=== PATIENT | female | born 1980 | race American Indian/Alaskan Native ===

== ENCOUNTER 2019-07-05 18:34 | Emergency (ER) | payer OTHER ==
--- NOTE | 2019-07-05 19:33 | Event Note ---
ED Screening Note Date of service: 07/05/19 Time: 19:28 ED Screening Note: This is a 38 y.o. F. that presents to the ER with hematochezia x 1 days and left flank. PMH HTN, HLD, and hemorrhoids Reports left flank pain for 1 week. She went to urgent care last Sunday and prescribed ibuprofen for muscle spasm. States no improvement of flank pain. Denies fever, urinary frequency, urgency, dysuria, or vaginal discharge. LMP 06/20/2019 This initial assessment/diagnostic orders/clinical plan/treatment(s) is/are subject to change based on patients health status, clinical progression and re- assessment by fellow clinical providers in the ED. Further treatment and workup at subsequent clinical providers discretion. Patient/guardian urged not to elope from the ED as their condition may be serious if not clinically assessed and managed. Initial orders include: Labs and CT of abdomen and pelvis
[2019-07-05 19:35] VITALS: BP 150/93
[2019-07-05 20:18] LABS: Basophils % (Auto) 0.3 % (0.0-1.8); Eosinophils # (Auto) 0.1 K/mm3 (0.0-0.4); Hematocrit 36.8 % (30.3-42.9); Hemoglobin 12.4 gm/dl (10.1-14.3); Lymphocytes # (Auto) 2.5 K/mm3 (1.2-5.4); Lymphocytes % (Auto) 19.2 % (13.4-35.0); Mean Corpuscular HGB Conc 34 % (30-34); Mean Corpuscular Volume 74 fl (79-97); Monocytes # (Auto) 0.6 K/mm3 (0.0-0.8); Monocytes % (Auto) 4.2 % (0.0-7.3); Platelet Count 353 K/mm3 (140-440); Red Blood Count 4.97 M/mm3 (3.65-5.03)
[2019-07-05 20:43] LABS: Alanine Aminotransferase 17 units/L (7-56); Albumin 4.5 g/dL (3.9-5); BUN/Creatinine Ratio 18; Blood Urea Nitrogen 11 mg/dL (7-17); Calcium 8.8 mg/dL (8.4-10.2); Hemolysis Index 2
--- NOTE | 2019-07-05 20:52 | Emergency Department Report ---
ED Female HPI - General Chief complaint: Abdominal Pain Stated complaint: BLOOD IN STOOL/LT SIDE PAIN Time Seen by Provider: 07/05/19 19:27 Source: patient Mode of arrival: Ambulatory Limitations: No Limitations - History of Present Illness Initial comments: This is a 38 y.o. F. that presents to the ER with hematochezia x 1 days and left flank. PMH HTN, HLD, and hemorrhoids Reports left flank pain for 1 week. She went to urgent care last Sunday and prescribed ibuprofen for muscle spasm. States no improvement of flank pain. Denies fever, urinary frequency, urgency, dysuria, or vaginal discharge. LMP 06/20/2019 - Related Data Allergies Allergy/AdvReac Type Severity Reaction Status Date / Time No Known Allergies Allergy Unverified 07/05/19 19:35 ED Review of Systems ROS: Stated complaint: BLOOD IN STOOL/LT SIDE PAIN Other details as noted in HPI ED Past Medical Hx - Past Medical History Previous Medical History?: Yes Hx Hypertension: Yes Additional medical history: High Cholesterol, Hemorroids, - Surgical History Past Surgical History?: Yes Hx Cholecystectomy: Yes Additional Surgical History: Tubal Ligation, C-sections X 3 - Social History Smoking Status: Never Smoker Substance Use Type: None ED Physical Exam - General Limitations: No Limitations ED Course Vital Signs 07/05/19 19:28 Temperature 98.6 F Pulse Rate 80 Respiratory 18 Rate Blood Pressure 150/93 O2 Sat by Pulse 100 Oximetry ED Medical Decision Making - Lab Data Result diagrams: 07/05/19 19:55 07/05/19 19:55 - Radiology Data Radiology results: report reviewed Patient: STEVEN HAMM MR#: [id number] 7 : 1980 Acct:[id number] Age/Sex: 38 / F ADM Date: 07/05/19 Loc: ED Attending Dr: Ordering Physician: GUERITA FELDMAN Date of Service: 07/05/19 Procedure(s): CT abdomen pelvis w con Accession Number(s): [id number] cc: GUERITA FELDMAN CT ABDOMEN AND PELVIS WITH CONTRAST INDICATION: Left upper artery pain with diarrhea. COMPARISON: No relevant prior imaging study available. TECHNIQUE: Axial, coronal and sagittal CT imaging of the abdomen and pelvis was performed after injection of 100 mL Omnipaque [address] scans at this location are performed using CT dose reduction for ALARA by means of automated exposure control. FINDINGS: LOWER CHEST: No significant abnormality. LIVER: Bilobar are hepatic hemangiomas measure up to 1.3 cm. No additional significant abnormality. BILIARY: Prior cholecystectomy. No significant abnormality. PANCREAS: No significant abnormality. SPLEEN: No significant abnormality. ADRENALS: No significant abnormality. KIDNEYS AND URETERS: Multiple left renal parapelvic cysts are noted without an additional significant abnormality. GI TRACT: No significant abnormality of the stomach, small bowel or colon. Unremarkable appendix. There is rectus diastasis with a small umbilical hernia containing fat. PERITONEUM: No free fluid. No free air. No fluid collection. LYMPH NODES: No significant adenopathy. VASCULATURE: No significant abnormality. URINARY BLADDER: No significant abnormality. REPRODUCTIVE ORGANS: A hyperdense mass is seen along the uterine body measuring 4.6 x 4.0 cm on image 124 of series 2 and likely represents a fibroid. No additional significant abnormality. ADDITIONAL FINDINGS: None. SKELETAL SYSTEM: No significant abnormality. IMPRESSION: 1. No acute abnormality of the abdomen or pelvis. 2. Additional findings as above. Signer Name: Pavan Linda MD Signed: 07/05/2019 10:05 PM Workstation Name: [id number] Transcribed By: [place] Dictated By: Pavan Linda MD Electronically Authenticated By: Pavan Linda MD Signed Date/Time: 07/05/192204 DD/ 00 TD/TT: Critical care attestation.: If time is entered above; I have spent that time in minutes in the direct care of this critically ill patient, excluding procedure time. ED Disposition Clinical Impression: Left upper quadrant pain, Microhematuria Uterine fibroid Qualifiers: Uterine leiomyoma location: unspecified location Qualified Code(s): D25.9 - Leiomyoma of uterus, unspecified Disposition: DC-01 TO HOME OR SELFCARE Is pt being admited?: No Does the pt Need Aspirin: No Condition: Stable Instructions: Abdominal Pain (ED), Uterine Fibroids (ED), Acute Hematuria (ED) Additional Instructions: CAT scan shows no acute abnormalities but does show a small fibroid uterus. Your urine shows small amount of blood which is considered microhematuria. I am referring him to a urologist as well as a [facility] specialist. I'm also referrig you to [facility] for concerns of blood in stool. Your lab work is stable does not show any acute blood loss. Referrals: [facility] [Provider Group] - 3-5 Days LISANDRO DUQUE MD [Staff Physician] - 3-5 Days [facility] [Provider Group] - 3-5 Days Forms: Work/School Release Form(ED)
[2019-07-05 20:56] LABS: Bilirubin,Urine SM (Negative); Blood,Urine MOD (Negative); Color,Urine Yellow (Yellow); Mucus,Urine 2+ /HPF; Protein,Urine <15 mg/dL mg/dL (Negative); Urobilinogen,Urine < 2.0 mg/dL (<2.0)
[2019-07-05 21:26] LABS: Bacteria,Urine 1+ /HPF (Negative)
[2019-07-05 21:35] LABS: Ictotest,Urine Negative (Negative)
--- NOTE | 2019-07-05 22:10 | Cat Scan Report ---
CT ABDOMEN AND PELVIS WITH CONTRAST INDICATION: Left upper artery pain with diarrhea. COMPARISON: No relevant prior imaging study available. TECHNIQUE: Axial, coronal and sagittal CT imaging of the abdomen and pelvis was performed after inje ction of 100 mL Omnipaque [address] scans at this location are performed using CT dose re duction for ALARA by means of automated exposure control. FINDINGS: LOWER CHEST: No significant abnormality. LIVER: Bilobar are hepatic hemangiomas measure up to 1.3 cm. No additional significant abnormality. BILIARY: Prior cholecystectomy. No significant abnormality. PANCREAS: No significant abnormality. SPLEEN: No significant abnormality. ADRENALS: No significant abnormality. KIDNEYS AND URETERS: Multiple left renal parapelvic cysts are noted without an additional significant abnormality. GI TRACT: No significant abnormality of the stomach, small bowel or colon. Unremarkable appendix. Th ere is rectus diastasis with a small umbilical hernia containing fat. PERITONEUM: No free fluid. No free air. No fluid collection. LYMPH NODES: No significant adenopathy. VASCULATURE: No significant abnormality. URINARY BLADDER: No significant abnormality. REPRODUCTIVE ORGANS: A hyperdense mass is seen along the uterine body measuring 4.6 x 4.0 cm on image 124 of series 2 and likely represents a fibroid. No additional significant abnormality. ADDITIONAL FINDINGS: None. SKELETAL SYSTEM: No significant abnormality. IMPRESSION: 1. No acute abnormality of the abdomen or pelvis. 2. Additional findings as above. Signer Name: Pavan Linda MD Signed: 07/05/2019 10:05 PM Workstation Name: [id number]
== END 2019-07-05 23:45 | disposition home or self-care (01) ==
LOC: ED 18:34
DX: D25.9 Leiomyoma of uterus, unspecified (principal); I10 Essential (primary) hypertension; E78.00 Pure hypercholesterolemia, unspecified; Z90.49 Acquired absence of other specified parts of digestive tract; Z98.51 Tubal ligation status
CPT/HCPCS: 36415; 74177; 80053; 81001; 83690; 84703; 85025; 93005; 93010; 99284; Q9967

== ENCOUNTER 2019-07-09 10:47 | Day surgery (SDC) | payer OTHER ==
[~2019-07-09 10:47] MED LIST: SODIUM CHLORIDE 0.9% 1000 ML 1,000 ML IV SCH
--- NOTE | 2019-07-09 11:47 | Anesthesia Day of Surgery ---
Anesthesia Day of Surgery - Day of Surgery Patient Examined: Yes Patient H&P Reviewed: Yes Patient is NPO: Yes Beta Blockers: Yes
--- NOTE | 2019-07-09 11:47 | Anesthesia Consultation ---
Anesthesia Consult and Med Hx Date of service: 07/09/19 - Airway Anesthetic Teeth Evaluation: Good ROM Head & Neck: Adequate Mental/Hyoid Distance: Adequate Mallampati Class: Class II Intubation Access Assessment: Probably Good - Pulmonary Exam CTA: Yes - Cardiac Exam Cardiac Exam: RRR - Pre-Operative Health Status ASA Pre-Surgery Classification: ASA2 Proposed Anesthetic Plan: MAC - Cardiovascular System Hx Hypertension: Yes - Gastrointestinal Hx Gastroesophageal Reflux Disease: Yes - Endocrine Hx Liver Disease: Yes (Hyperlipidemia)
[2019-07-09] MEDS ORDERED: MIDAZOLAM 2 MG/2 ML INJ ONE (11:50)
[2019-07-09] MEDS ORDERED: PROPOFOL 200 MG/20 ML VIAL IV ONE (11:50)
--- NOTE | 2019-07-09 12:08 | Procedure Note ---
Date of procedure: 07/09/19 Pre-op diagnosis: Atypical Chest Pain Post-op diagnosis: other (R/O Eosinophilc Esophagitis/Gastritis/R/O Celiac Disease) Procedure: EGD with Biopsy Anesthesia: MAC Surgeon: ALISON JAMISON Estimated blood loss: minimal Pathology: list Specimen disposition: to lab Condition: stable Disposition: same day (Treat with PPI and Baclofen. Avoid aspirin and NSAID for 4 days; otherwise resume home medication and follow up in 1 to 2 weeks ([phone]).)
[2019-07-09 12:44] VITALS: BP 130/85
--- NOTE | 2019-07-09 14:30 | Operative Report ---
PROCEDURE: EGD with biopsy. INDICATIONS: This is a 38-year-old female who has been having some atypical chest pain as well as associated epigastric pain that appears to be worsened with food. EGD was done to make sure there was not any significant upper GI pathology. DESCRIPTION OF PROCEDURE: Procedure was done after getting informed consent with MAC anesthesia. An instrument was passed through the hypopharynx into the esophagus, which showed some mild distal erosive esophagitis. Biopsy was done from the mid esophagus to rule out for possible eosinophilic esophagitis. The stomach showed gastritis. Biopsy was done from the gastric antrum, gastric body and angular incisura to rule out for H. pylori and atrophic gastritis. There was minimal bleeding associated with the biopsy. The pylorus was patent. The duodenum in the first and second portion appeared normal. Because of her age, biopsy was also done from the second part to rule out for possible associated celiac disease. There was no peptic ulcer disease noted. No complications associated with the procedure and only minimal bleeding associated with the biopsy. ASSESSMENT: Atypical chest pain, rule out eosinophilic esophagitis, dyspepsia, gastritis, rule out celiac disease. PLAN: To treat the patient with PPI, have the patient avoid aspirin and aspirin-related products for the next few days. Follow up in the office in 1-2 weeks' time. The procedure was done in the GI lab with assistance of the GI lab team, which included the GI lab nurse including Natalia smith and with assistance of Anesthesia. JOB# [id number] LATRICE/JORY
--- NOTE | 2019-07-09 15:49 | Post Anesthesia Evaluation ---
- Post Anesthesia Evaluation Patient Participated: Yes Airway Patent: Yes Stable Respiratory Function: Yes Nausea/Vomiting: No Temp > 96.8F: Yes Pain Manageable: Yes Adequeate Hydration: Yes Anesthesia Complications: No Block Receding Appropriately: Not Applicable Patient on Ventilator: No
== END 2019-07-09 10:48 | disposition home or self-care (01) ==
LOC: GIO 10:47
DX: R10.13 Epigastric pain (principal); K27.9 Peptic ulcer, site unspecified, unspecified as acute or chronic, without hemorrhage or perforation; K31.89 Other diseases of stomach and duodenum; B96.81 Helicobacter pylori [H. pylori] as the cause of diseases classified elsewhere; R07.9 Chest pain, unspecified; I10 Essential (primary) hypertension; K21.9 Gastro-esophageal reflux disease without esophagitis; E78.00 Pure hypercholesterolemia, unspecified; Z79.82 Long term (current) use of aspirin; Z79.899 Other long term (current) drug therapy; Z90.49 Acquired absence of other specified parts of digestive tract; Z98.890 Other specified postprocedural states
CPT/HCPCS: 43239; 81025; 88305; 88342; J2250; J2704; J7030

== ENCOUNTER 2019-09-11 07:23 | Day surgery (SDC) | payer OTHER ==
[2019-09-11] MEDS ORDERED: SODIUM CHLORIDE 0.9% 1000 ML 1,000 ML IV SCH (08:15)
--- NOTE | 2019-09-11 08:38 | Anesthesia Day of Surgery ---
Anesthesia Day of Surgery - Day of Surgery Patient Examined: Yes Patient H&P Reviewed: Yes Patient is NPO: Yes
--- NOTE | 2019-09-11 08:38 | Anesthesia Consultation ---
Anesthesia Consult and Med Hx Date of service: 09/11/19 - Airway Anesthetic Teeth Evaluation: Good, Caps ROM Head & Neck: Adequate Mental/Hyoid Distance: Adequate Mallampati Class: Class II Intubation Access Assessment: Probably Good - Pulmonary Exam CTA: Yes - Cardiac Exam Cardiac Exam: RRR - Pre-Operative Health Status ASA Pre-Surgery Classification: ASA2 Proposed Anesthetic Plan: MAC - Cardiovascular System Hx Hypertension: Yes (no longer taking meds ) - Gastrointestinal Hx Gastroesophageal Reflux Disease: Yes - Endocrine Hx Liver Disease: Yes (Hyperlipidemia) - Hematic Hx Sickle Cell Disease: (SICKLE CELL TRAIT) - Additional Comments Anesthesia Medical History Comments: abdominal pain. kidney cyst, benign lung tumor. Denies any resp.symptoms
[2019-09-11] MEDS ORDERED: PROPOFOL 200 MG/20 ML VIAL IV ONE ×3 (09:17→09:32)
[2019-09-11] MEDS ORDERED: LIDOCAINE 2% UROJECT 10 ML JELLY ONE (09:23)
[2019-09-11] MEDS ORDERED: LIDOCAINE (2%) 20 MG/1 ML VIAL 20 ML MDV INFILTRATI ONE (09:41)
[2019-09-11] MEDS ORDERED: LIDOCAINE 2% UROJECT 10 ML JELLY MM ONE (09:45)
[2019-09-11] MEDS ORDERED: LIDOCAINE JELLY (2%) 5 ML TOPICAL ONE (09:45)
--- NOTE | 2019-09-11 10:06 | Procedure Note ---
Date of procedure: 09/11/19 Pre-op diagnosis: Abdominal Pain and Hematochezia Post-op diagnosis: other (Abdominal Pain (R/O Microscopic Colitis and R/O Ileitis)/Hematochezia secondary to Moderate Internal Hemorrhoids (S/P Banding x 4 Internal Hemorrhoids)/Minor,External Hemorrhoids) Procedure: Colonoscopy with Biopsy and Flexible sigmopidoscopy with Banding x 5 ((4 Hemorrhoids Banded; jas hemorrhoid was banded with 2 Bands). Anesthesia: MAC Surgeon: ALISON JAMISON Estimated blood loss: minimal Pathology: list Specimen disposition: to lab Condition: stable Disposition: same day (Treat with Lortab 5, prn. Avoid aspirin and NSAID for 4 days; otherwise resume home medication. follow up in 2 weeks ([phone]).)
--- NOTE | 2019-09-11 10:08 | Operative Report ---
PROCEDURE: Colonoscopy. INDICATIONS: A 38-year-old female who previously has had an EGD done, which showed presence of H. pylori gastritis for which she has been treated. She continues to have abdominal pain and also has been complaining of some hematochezia. Colonoscopy was done to assess for the problem and to assess for any associated colitis. DESCRIPTION OF PROCEDURE: Procedure was done after getting informed consent with MAC anesthesia. Initial rectal exam was unremarkable. Instrument was passed through the rectum onto the cecum, which was identified with ileocecal valve and appendiceal orifice. The terminal ileum was intubated showed normal mucosa. Biopsy was done to rule out for possible ileitis. Cecum, ascending colon, transverse colon, descending colon, and sigmoid likewise showed normal mucosa. Random biopsies were done to rule out for possible microscopic colitis. There is minimal bleeding associated with the procedure. The rectum showed moderate internal hemorrhoid, which may have been the cause of the patient's bleeding and there was some minor external hemorrhoid also noted. ASSESSMENT: Hematochezia secondary to moderate internal hemorrhoids and some mild external hemorrhoid, abdominal pain, rule out microscopic colitis, rule out ileitis. No colon polyps, no gross endoscopic evidence of colitis or diverticular disease noted. There was minimal bleeding from the biopsy sites. No complications associated with the procedure. Plan is to do a flexible sigmoidoscopy with banding for treatment of the moderate internal hemorrhoids as the cause of the patient's hematochezia. The patient is to have a banding done and the patient then analgesics, namely Lortab 5 will be given for relief of any associated pain. The patient will be asked to avoid aspirin and aspirin-related products and follow up in the office in 1-2 weeks' time. The procedure was done in the GI lab with the assistance of the GI lab nurse RN, Dorothy Tidwell as well as luis Fisher and with assistance of Anesthesia. PSYCHIATRIC# [id number] LATRICE/JORY
[2019-09-11 10:13] VITALS: BP 111/80
--- NOTE | 2019-09-11 11:31 | Operative Report ---
PROCEDURE: Flexible sigmoidoscopy with banding. INDICATIONS: A 38-year-old female who had been having some abdominal pain and hematochezia. Colonoscopy showed normal colon and mucosa as well as terminal ileal mucosa. Biopsy was done to rule out for possible associated microscopic colitis or ileitis. The patient was noted to have moderate external hemorrhoids, which may have been the cause of the hematochezia as well as some mild external hemorrhoid and will require flexible sigmoidoscopy with banding. Procedure was done by introducing after getting informed consent with MAC anesthesia. The EGD scope with the banding apparatus on it was introduced through the rectum and retroflexed four of the largest internal hemorrhoids were then suctioned into the suction channel and a total of 5 bands were applied, 2 bands were applied to 1 hemorrhoid. There was minimal bleeding associated with the procedure. No complications associated with the procedure. At the end of the procedure, lidocaine gel was injected into the rectal vault and the banded hemorrhoids were then smeared with it. This was done with one with a larger vial and 1 with a smaller vial. Again, there were no complications associated with the procedure. ASSESSMENT: Hematochezia secondary to moderate internal hemorrhoids, status post banding x 4. PLAN: To treat the patient with analgesics, namely Lortab 5 thirty tablets given without any refill; in case the patient has associated pain, avoid aspirin and aspirin-related products. Encouraged the patient to take Sitz bath and also [id number] hemorrhoidal medication and follow up in the office in 1-2 weeks' time. Procedure was done in the GI lab with assistance of the GI lab team, which included Dorothy BERMUDEZ as well as Natalia smith and with assistance of Anesthesia. There were 2 other observers in the room. JOB# [id number] LATRICE/JORY
== END 2019-09-11 07:24 | disposition home or self-care (01) ==
LOC: GIO 07:23
DX: K92.1 Melena (principal); R10.9 Unspecified abdominal pain; K64.8 Other hemorrhoids; K92.2 Gastrointestinal hemorrhage, unspecified; K63.5 Polyp of colon; K63.89 Other specified diseases of intestine; E78.00 Pure hypercholesterolemia, unspecified; I10 Essential (primary) hypertension; K21.9 Gastro-esophageal reflux disease without esophagitis; K64.4 Residual hemorrhoidal skin tags; Z79.899 Other long term (current) drug therapy; Z90.49 Acquired absence of other specified parts of digestive tract; Z98.891 History of uterine scar from previous surgery; Z98.890 Other specified postprocedural states; Z86.2 Personal history of diseases of the blood and blood-forming organs and certain disorders involving the immune mechanism; Z79.82 Long term (current) use of aspirin
CPT/HCPCS: 45380; 45398; 81025; 88305; J2704

== ENCOUNTER 2019-11-19 19:55 | Emergency (ER) | payer SELFPAY ==
--- NOTE | 2019-11-19 20:51 | Emergency Department Report ---
Blank Doc - Documentation Documentation: 39-year-old female that presents with chest pain. This initial assessment/diagnostic orders/clinical plan/treatment(s) is/are subject to change based on patient's health status, clinical progression and re- assessment by fellow clinical providers in the ED. Further treatment and workup at subsequent clinical providers discretion. Patient/guardians urged not to elope from the ED as their condition may be serious if not clinically assessed and managed. Initial orders include: 1- Patient sent to [facility] for further evaluation and treatment 2- EKG 3- CXR
--- NOTE | 2019-11-19 21:11 | XRay Report ---
CHEST 2 VIEWS INDICATION / CLINICAL INFORMATION: Chest pain. COMPARISON: None available. FINDINGS: SUPPORT DEVICES: None. HEART / MEDIASTINUM: No significant abnormality. LUNGS / PLEURA: No significant pulmonary or pleural abnormality. No pneumothorax. ADDITIONAL FINDINGS: No significant additional findings. IMPRESSION: No acute finding. Signer Name: Kody Tian MD Signed: 11/19/2019 9:07 PM Workstation Name: [id number]
[2019-11-19 23:10] LABS: Basophils % (Auto) 0.4 % (0.0-1.8); Eosinophils # (Auto) 0.1 K/mm3 (0.0-0.4); Eosinophils % (Auto) 1.5 % (0.0-4.3); Hematocrit 35.1 % (30.3-42.9); Hemoglobin 11.8 gm/dl (10.1-14.3); Lymphocytes # (Auto) 2.6 K/mm3 (1.2-5.4); Lymphocytes % (Auto) 29.3 % (13.4-35.0); Mean Corpuscular HGB Conc 34 % (30-34); Mean Corpuscular Volume 71 fl (79-97); Monocytes # (Auto) 0.5 K/mm3 (0.0-0.8); Monocytes % (Auto) 5.4 % (0.0-7.3); Platelet Count 305 K/mm3 (140-440); Red Blood Count 4.94 M/mm3 (3.65-5.03); Red Cell Distribution Width 17.9 % (13.2-15.2)
[2019-11-19 23:36] LABS: Alanine Aminotransferase 18 units/L (7-56); Albumin 4.5 g/dL (3.9-5); BUN/Creatinine Ratio 17; Blood Urea Nitrogen 12 mg/dL (7-17); Calcium 9.2 mg/dL (8.4-10.2); Hemolysis Index 1
--- NOTE | 2019-11-20 01:55 | Emergency Department Report ---
ED Chest Pain HPI - General Chief Complaint: Chest Pain Stated Complaint: CHEST PAIN Time Seen by Provider: 11/19/19 20:48 Source: patient Mode of arrival: Ambulatory Limitations: No Limitations - History of Present Illness Initial Comments: Patient is a 39-year-old -[place] female with a history of hypertension and hyperlipidemia who presents to the ED with complaint of acute onset persistent intermittent left-sided chest pain which she describes as pressure and tightness and which radiates to the left upper arm for the last 12 hours. Patient states that initially when the pain began she was driving when she felt sharp pain in her left chest wall behind her left breast and subsequently the pain started radiating to her left upper arm and left posterior midthoracic area. Patient states that as the pain got worse she stopped driving and her who was with her to cover the driveway. Patient states that she went home and took aspirin and ibuprofen and went to sleep thinking that the pain would resolve. Patient states that the pain improved significantly better 4 hours ago the pain started getting worse and she decided to come to the ED for evaluation. Patient denies shortness of breath, dizziness, headache, nausea and vomiting, abdominal pain, sore throat, neck pain, traumatic injury or heavy lifting, change in vision or syncope, palpitations, fever or chills and cough. MD Complaint: chest pain, other (left sided chest wall pain) -: Sudden, hour(s) (12) Onset: during rest Pain Location: left chest Pain Radiation: LUE Severity: severe Severity scale (0 -10): 7 Quality: aching, sharp, pressure Consistency: intermittent Improves With: nothing Worsens With: nothing re: denies: nausea, vomting, diaphoresis, dyspnea, sense of impending doom Other Symptoms: denies: cough, fever, rash, acid taste in mouth, leg swelling Treatments Prior to Arrival: aspirin Aspirin use within the Past 7 Days: (0) No - Related Data On Oral Contraceptives: No Home Medications Medication Instructions Recorded Confirmed Last Taken Aspirin BABY CHEW TAB 81 mg PO DAILY 07/08/19 07/09/19 07/06/19 08:00 Carvedilol 1 tab PO DAILY 07/08/19 07/08/19 Unknown Lipitor 1 tab PO DAILY 07/08/19 07/09/19 07/08/19 08:00 Previous Rx's Medication Instructions Recorded Last Taken Type Baclofen [Lioresal] 10 mg PO ONCE 30 Days #30 tablet 07/09/19 Unknown Rx Pantoprazole [Protonix] 40 mg PO QDAY 1 Days #30 tablet 07/09/19 Unknown Rx Cyclobenzaprine [Flexeril] 10 mg PO Q8H PRN #15 tablet 11/20/19 Unknown Rx Naproxen 500 mg PO Q12H PRN #24 tablet 11/20/19 Unknown Rx hydrOXYzine PAMOATE [Vistaril] 25 mg PO Q6HR PRN #30 capsule 11/20/19 Unknown Rx Allergies Allergy/AdvReac Type Severity Reaction Status Date / Time No Known Allergies Allergy Verified 07/09/19 11:56 Heart Score - HEART Score History: Slightly suspicious EKG: Normal Age: < 45 Risk factors: 1-2 risk factors Troponin: < normal limit HEART Score: 1 ED Review of Systems ROS: Stated complaint: CHEST PAIN Other details as noted in HPI Constitutional: denies: chills, fever Eyes: denies: eye pain, eye discharge, vision change ENT: denies: ear pain, throat pain Respiratory: denies: cough, shortness of breath, wheezing Cardiovascular: chest pain (left-sided). denies: palpitations Endocrine: no symptoms reported Gastrointestinal: denies: abdominal pain, nausea, diarrhea Genitourinary: denies: urgency, dysuria, discharge Musculoskeletal: denies: back pain, joint swelling, arthralgia Skin: denies: rash, lesions Neurological: denies: headache, weakness, paresthesias Psychiatric: denies: anxiety, depression Hematological/Lymphatic: denies: easy bleeding, easy bruising ED Past Medical Hx - Past Medical History Previous Medical History?: Yes Hx Hypertension: Yes (no longer taking meds ) Hx Liver Disease: Yes (Hyperlipidemia) Hx Sickle Cell Disease: (SICKLE CELL TRAIT) Additional medical history: High Cholesterol, Hemorroids, - Surgical History Hx Cholecystectomy: Yes Additional Surgical History: Tubal Ligation, C-sections X 3 - Social History Smoking Status: Never Smoker Substance Use Type: None - Medications Home Medications: Home Medications Medication Instructions Recorded Confirmed Last Taken Type Aspirin BABY CHEW TAB 81 mg PO DAILY 07/08/19 07/09/19 07/06/19 08:00 History Carvedilol 1 tab PO DAILY 07/08/19 07/08/19 Unknown History Lipitor 1 tab PO DAILY 07/08/19 07/09/19 07/08/19 08:00 History Baclofen [Lioresal] 10 mg PO ONCE 30 Days #30 tablet 07/09/19 Unknown Rx Pantoprazole [Protonix] 40 mg PO QDAY 1 Days #30 tablet 07/09/19 Unknown Rx Cyclobenzaprine [Flexeril] 10 mg PO Q8H PRN #15 tablet 11/20/19 Unknown Rx Naproxen 500 mg PO Q12H PRN #24 tablet 11/20/19 Unknown Rx hydrOXYzine PAMOATE [Vistaril] 25 mg PO Q6HR PRN #30 capsule 11/20/19 Unknown Rx ED Physical Exam - General Limitations: No Limitations General appearance: alert, in no apparent distress - Head Head exam: Present: atraumatic, normocephalic - Eye Eye exam: Present: normal appearance, PERRL, EOMI Pupils: Present: normal accommodation - ENT ENT exam: Present: normal exam, normal orophraynx, mucous membranes moist, TM's normal bilaterally, normal external ear exam - Neck Neck exam: Present: normal inspection, full ROM - Respiratory Respiratory exam: Present: normal lung sounds bilaterally, chest wall tenderness (palpable left-sided chest wall tenderness). Absent: respiratory distress, wheezes, rhonchi, stridor - Cardiovascular Cardiovascular Exam: Present: regular rate, normal rhythm, normal heart sounds. Absent: systolic murmur, diastolic murmur, rubs, gallop - GI/Abdominal GI/Abdominal exam: Present: soft, normal bowel sounds. Absent: tenderness, guarding, rebound, hyperactive bowel sounds, hypoactive bowel sounds, organomegaly - Extremities Exam Extremities exam: Present: normal inspection, full ROM, normal capillary refill - Back Exam Back exam: Present: normal inspection, full ROM. Absent: tenderness, CVA tenderness (R), CVA tenderness (L), muscle spasm, paraspinal tenderness - Neurological Exam Neurological exam: Present: alert, oriented X3, CN II-XII intact, normal gait, reflexes normal - Psychiatric Psychiatric exam: Present: normal affect, normal mood - Skin Skin exam: Present: warm, dry, intact, normal color. Absent: rash ED Course Vital Signs 11/19/19 11/19/19 11/20/19 20:27 22:30 00:30 Temperature 98.2 F Pulse Rate 93 H 89 Respiratory 16 16 18 Rate Blood Pressure 164/93 Blood Pressure 152/86 [Left] O2 Sat by Pulse 100 98 Oximetry MICHAEL score - Michael Score Age > 65: (0) No Aspirin use within the Past 7 Days: (0) No 3 or more CAD Risk Factors: (0) No 2 or more Angina events in past 24 hrs: (0) No Known CAD with more than 50% Stenosis: (0) No Elevated Cardiac Markers: (0) No ST Deviation Greater than 0.5mm: (0) No MICHAEL Score: 0 ED Medical Decision Making - Lab Data Result diagrams: 11/19/19 22:47 11/19/19 22:47 - EKG Data EKG shows normal: sinus rhythm Rate: normal - EKG Data Interpretation: normal EKG 11/20/19 05:58 EKG shows normal sinus rhythm with a ventricular rate of [address] or T wave abnormalities. - Radiology Data Radiology results: report reviewed, image reviewed Chest x-ray shows no acute cardiopulmonary abnormalities or pneumonitis, pneumothorax or pleural effusion. - Medical Decision Making This is a 39-year-old -[place] female with a history of hypertension and hyperlipidemia who presents to the ED with complaint of acute onset persistent intermittent left-sided chest pain which she describes as pressure and tightness and which radiates to the left upper arm for the last 12 hours. Patient states that initially when the pain began she was driving when she felt sharp pain in her left chest wall behind her left breast and subsequently the pain started radiating to her left upper arm and left posterior midthoracic area. In the ED, patient is alert and oriented x3 and is not in any distress. Physical exam reveals palpable left chest wall tenderness. EKG shows normal sinus rhythm with a ventricular rate of [address] or T wave abnormalities. Chest x-ray shows no acute cardiopulmonary abnormalities or pneumonitis, pleural effusion or pneumothorax. Lab test results were reviewed and are all nonactionable including initial and repeat troponin level as well as d-dimer. The patient's heartscore is 1 and she is PERC negative for PE evaluation. Patient was treated for pain in the ED and on reevaluation, patient's pain is well controlled with medications. Patient symptoms are likely due to acute costochondritis or left chest wall muscle strain since the patient lab test results are unremarkable. Patient was discharged home on pain medications and muscle relaxants and advised to follow-up with her primary care physician in 5 to 7 days for reevaluation or return to the ED immediately if symptoms get worse. - Differential Diagnosis CAD; PE; Pneumonia; Muscle strain; Costochondritis Critical care attestation.: If time is entered above; I have spent that time in minutes in the direct care of this critically ill patient, excluding procedure time. ED Disposition Clinical Impression: Intermittent left-sided chest pain, Muscle strain of anterior chest wall, Acute costochondritis, Anxiety as acute reaction to exceptional stress Disposition: TO HOME OR SELFCARE Is pt being admited?: No Does the pt Need Aspirin: No Condition: Stable Instructions: Chest Pain (ED), Muscle Strain (ED), Costochondritis (ED), Anxiety (ED) Additional Instructions: Your symptoms are likely due to acute chest wall muscle strain or costochondral pain. All lab test results show no acute pathology including cardiac enzymes. Your EKG was unremarkable. Chest x-ray shows no acute cardiopulmonary abnormalities or pneumonitis. Therefore take pain medications with food, drink plenty of fluids and follow-up with your primary care physician in 3 to 5 days for reevaluation or return to the ED immediately if symptoms get worse. Prescriptions: Cyclobenzaprine [Flexeril] 10 mg PO Q8H PRN #15 tablet PRN Reason: Muscle Spasm Naproxen 500 mg PO Q12H PRN #24 tablet PRN Reason: Pain , Severe (7-10) hydrOXYzine PAMOATE [Vistaril] 25 mg PO Q6HR PRN #30 capsule PRN Reason: Anxiety Referrals: DIANE ZUÑIGA MD [Staff Physician] - 3-5 Days Forms: Work/School Release Form(ED) Time of Disposition: 01:51 Print Language: MEXICAN
[2019-11-20] MEDS: HYDROcodone/ACETAMINOPHEN 5-325 MG TAB PO ONE (02:03)
[2019-11-20] MEDS ORDERED: HYDROcodone/ACETAMINOPHEN 5-325 MG TAB ONE (02:04)
[2019-11-20 02:24] VITALS: BP 152/86
== END 2019-11-20 02:24 | disposition home or self-care (01) ==
LOC: ED 19:55
DX: S29.011A Strain of muscle and tendon of front wall of thorax, initial encounter (principal); F41.9 Anxiety disorder, unspecified; F43.0 Acute stress reaction; I10 Essential (primary) hypertension; E78.5 Hyperlipidemia, unspecified; D57.3 Sickle-cell trait; K64.9 Unspecified hemorrhoids; Z98.51 Tubal ligation status; Z79.899 Other long term (current) drug therapy; X58.XXXA Exposure to other specified factors, initial encounter; Y93.89 Activity, other specified; Y92.89 Other specified places as the place of occurrence of the external cause; Y99.8 Other external cause status
CPT/HCPCS: 36415; 71046; 80053; 84484; 85025; 85379; 93005; 93010